=== PATIENT | male | born 1965 | race Caucasian/White ===

== ENCOUNTER 2024-08-03 13:49 | Emergency (ER) | payer MEDICARE ==
[2024-08-03 14:22] VITALS: TEMP 97.7
[2024-08-03 14:45] LABS: Absolute Neutrophil Ct (ANC) 5.52 x10^3/uL (1.78-5.38); BASOPHIL % 0.7 % (0.2-1.2); Basophil (Absolute #) 0.07 x10^3/uL (0.01-0.08); Eosinophil % 2.1 % (0.8-7.0); Hematocrit 28.3 % (40.1-51.0); IMMATURE GRAN # 0.06 x10^3u/L (0.001-0.031); IMMATURE GRAN % 0.6 % (0.001-0.429); Lymphocyte (Absolute #) 2.89 x10^3/uL (1.32-3.57); Lymphocytes % 29.9 % (21.8-53.1); Mean Cell Volume 84.5 fL (79.0-92.2); Mean Corpuscular Hemoglobin 26.9 pg (25.7-32.2); Mean Corpuscular Hgb Concent. 31.8 g/dL (32.3-36.5); Mean Platelet Volume 10.6 fL (9.4-12.4); Monocyte (Absolute #) 0.91 x10^3/uL (0.30-0.82); Monocytes % 9.4 % (5.3-12.2); Neutrophil % 57.3 % (34.0-67.9); Platelet Count 307 x10^3/uL (163-337); Red Blood Count 3.35 x10^6/uL (4.63-6.08); Red Cell Distribution Width 16.4 % (11.6-14.4); White Blood Count 9.7 x10^3/uL (4.23-9.07)
[2024-08-03 14:54] LABS: ACETAMINOPHEN < 10 ug/ml (10-30); ALBUMIN 3.7 g/dL (3.5-5.0); ALKALINE PHOSPHATASE 490 U/L (38-126); ANION GAP 14.4 MEQ/L (5-15); BLOOD UREA NITROGEN 18 mg/dL (9-20); CHLORIDE 103 mmol/L (98-107); Calcium 8.8 mg/dL (8.4-10.2); Carbon Dioxide 23 mmol/L (22-30); EST GLOMERULAR FILTRATION RATE 76.9 ML/MIN; ETHYL ALCOHOL < 10 mg/dL (0-10); Glucose 100 mg/dL (74-106); Potassium 4.1 mmol/L (3.5-5.1); SALICYLATE < 1.0 mg/dL (2-20); SGOT/AST 44 U/L (17-59); SGPT/ALT 27 U/L (0-50); SODIUM 136 mmol/L (135-145); Total Protein 7.8 g/dL (6.3-8.2)
--- NOTE | 2024-08-03 15:26 | ERPHSYRPT ---
- History of Present Illness Time Seen by Provider: 08/03/24 14:20 Source: patient Exam Limitations: no limitations Patient Subjective Stated Complaint: Behavioral problems- suicidal ideation Triage Nursing Assessment: Patient brought back to ED per EMS and transferred to bed per self. Patient A+O X3. Patient's skin pink, warm and dry. Patient is BLE amputee and resides at [facility] "[facility]" for therapy. [facility] staff states patient last night told a nurse that when he was D/C'd from group home he was going to OD on his Oxycontin and end things. Patient denies saying any of that. Patient denies suicidal/homicidal ideation. Physician History: Patient is a 59-year-old male presents to our ED via EMS for suicidal ideation. Patient presents from the [facility]. RN from [facility] reports that patient stated that he would overdose himself on OxyContin and and things once he was discharged from the [facility]. However upon arrival to our ED patient was verbally aggressive argumentative and threatening to staff. patient denied the allegations of self-harm. Patient accused his [facility] facility of lying regarding his suicide intent to get him to leave the facility. Patient currently denies homicidal suicidal ideation. Patient otherwise feels well. No pain no shortness of breath no nausea vomiting or diaphoresis. Patient denies ingesting any form of harmful substances. Patient otherwise feels well. He voices no other complaints or concerns at this time. Patient denies homicidal ideation and suicidal ideation at this time Portions of this note were created with voice recognition technology. There may be grammatical, spelling, punctuation or sound alike errors Timing/Duration: today Severity of Symptoms-Max: moderate Severity of Symptoms-Current: mild Context related to: other Suicidal thoughts: specific plan Associated Symptoms: denies symptoms Previous symptoms: no prior history Allergies/Adverse Reactions: Penicillins Allergy (Verified 08/03/24 13:54) quetiapine [From Seroquel] Allergy (Verified 08/03/24 13:54) Home Medications: Acetaminophen 325 mg [Tylenol 325 mg] 650 mg PO Q6H PRN PRN 08/04/24 [History] Amlodipine Besylate [Norvasc] 10 mg PO DAILY 08/04/24 [History] Aspirin EC 81 mg [Ecotrin 81 mg] 81 mg PO DAILY 08/04/24 [History] Atorvastatin Calcium [Lipitor] 80 mg PO HS 08/04/24 [History] Bisacodyl 10 mg [Dulcolax 10 MG SUPP] 10 mg RC DAILY PRN PRN 08/04/24 [History] Carboxymethylcellulose Sodium [Artificial Tears] 2 drops OP Q2H/PRN PRN 08/04/24 [History] Cholecalciferol (Vitamin D3) [Vitamin D3] 2,000 unit PO DAILY 08/04/24 [History] Clopidogrel Bisulfate [PLAVIX Tablet] 75 mg PO DAILY 08/04/24 [History] Cyanocobalamin (Vitamin B-12) [B-12] 1,000 mcg PO DAILY 08/04/24 [History] Duloxetine HCl [Drizalma Sprinkle] 60 mg PO DAILY 08/04/24 [History] Famotidine 40 mg PO DAILY 08/04/24 [History] Ferrous Sulfate 325 mg [Feosol 325 mg] 325 mg PO DAILY 08/04/24 [History] Finasteride 5 mg [Proscar 5 MG] 5 mg PO DAILY 08/04/24 [History] Fluticasone Propion/Salmeterol [Fluticasone-Salmeterol 250-50] 1 each IH BIDRT 08/04/24 [History] Furosemide 40 mg [Lasix 40 MG] 40 mg PO BID 08/04/24 [History] Hydrocodone/Acetaminophen [Hydrocodone-Acetamin 10-325 mg] 1 each PO Q6-8HPRN PRN 08/04/24 [History] Insulin Glargine [Lantus Insulin] 5 unit SQ DAILY 08/04/24 [History] Isosorbide Mononitrate 30 mg [Imdur 30 MG] 30 mg PO DAILY 08/04/24 [History] Levothyroxine Sodium 50 Mcg [Synthroid 50 Mcg] 50 mcg PO DAILY 08/04/24 [History] Loperamide HCl 2 mg [Imodium 2 mg] 2 mg PO Q8H PRN PRN 08/04/24 [History] Melatonin 10 mg PO HS 08/04/24 [History] Metformin HCl 500 mg [Glucophage 500 MG] 500 mg PO BIDWM 08/04/24 [History] Omeprazole 40 mg PO DAILY 08/04/24 [History] Polyethylene Glycol 3350 17 gm [Miralax Powder 17GM PACKET] 17 gm PO DAILY 08/04/24 [History] Potassium Chloride 20 meq PO DAILY 08/04/24 [History] Pregabalin [Lyrica 150Mg] 150 mg PO BID 08/04/24 [History] Rivaroxaban [Xarelto] 2.5 mg PO BID 08/04/24 [History] Saccharomyces Boulardii [Daily Probiotic] 250 mg PO BID 08/04/24 [History] Simethicone 125 mg PO Q6HPRN PRN 08/04/24 [History] Tamsulosin HCl 0.4 mg [Flomax 0.4 MG] 0.4 mg PO DAILY 08/04/24 [History] Thiamine HCl 100 mg [Vitamin B-1 100 mg] 100 mg PO DAILY 08/04/24 [History] atenoloL [Atenolol] 100 mg PO DAILY 08/04/24 [History] guaiFENesin [Guaifenesin ER] 600 mg PO BID 08/04/24 [History] Hx Influenza Vaccination/Date Given: No Hx Pneumococcal Vaccination/Date Given: No Immunizations Up to Date: Yes Travel Risk - International Travel Have you traveled outside of the country in past 3 weeks: No - Emerging Infectious Disease Are you exhibiting symptoms associated with any current EIDs: No - Past Medical History Pertinent Past Medical History: Yes - Social History Smoking Status: Current every day smoker Exposure to second hand smoke: No Drug Use: none - Social Determinants of Health Will the patient participate in the screening: Yes Do you worry about a steady place to live?: No Do you have any problems with any of the following?: No known problems In the past 12 months,have you had to go without utilities?: No Transportation Issues: No Has anyone in your support network made you feel unsafe?: No Have you or anyone in your house had to go without enough: No Comment: Patient resides at [facility] - Review of Systems Constitutional: No Symptoms, No Fever, No Chills Eyes: No Symptoms Ears, Nose, & Throat: No Symptoms Respiratory: No Symptoms, No Cough, No Dyspnea Cardiac: No Symptoms, No Chest Pain, No Edema, No Syncope Abdominal/Gastrointestinal: No Symptoms, No Abdominal Pain, No Nausea, No Vomiting, No Diarrhea Genitourinary Symptoms: No Symptoms, No Dysuria Musculoskeletal: No Symptoms, No Back Pain, No Neck Pain Skin: No Symptoms, No Rash Neurological: No Symptoms, No Dizziness, No Focal Weakness, No Sensory Changes Psychological: No Symptoms Endocrine: No Symptoms Hematologic/Lymphatic: No Symptoms Immunological/Allergic: No Symptoms All Other Systems: Reviewed and Negative - Nursing Vital Signs Nursing Vital Signs: Initial Vital Signs Temperature 97.7 F 08/03/24 13:56 Pulse Rate 79 08/03/24 13:56 Respiratory Rate 18 08/03/24 13:56 Blood Pressure 130/60 08/03/24 13:56 O2 Sat by Pulse Oximetry 98 08/03/24 13:56 Pain Scale Pain Intensity 0 - Physical Exam General Appearance: no apparent distress Eyes, Ears, Nose, Throat Exam: normal ENT inspection, moist mucous membranes Neck Exam: normal inspection, non-tender, supple Respiratory Exam: normal breath sounds, lungs clear, airway intact, No respiratory distress Cardiovascular Exam: regular rate/rhythm, No edema Gastrointestinal/Abdominal Exam: soft, No tenderness, No distention Extremities Exam: normal inspection, normal range of motion, No evidence of injury, No edema Current Suicidality: denies suicide plan Neurological Exam: alert, 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 No new opacities observed.) Ordered Tests: Active Orders 24 hr Category Date Time Status EKG-ER Only STAT Care 08/03/24 20:16 Active Lemus [Catheter-[place] Lemus] STAT Care 08/03/24 15:00 Active Tele-Health Consult ROUTINE Cons 08/03/24 19:17 Active CHEST 1 VIEW (PORTABLE) Stat Exams 08/03/24 23:59 Completed ACETAMINOPHEN Stat Lab 08/03/24 14:15 Completed CBC W DIFF Stat Lab 08/03/24 14:15 Completed CMP Stat Lab 08/03/24 14:15 Completed ETHYL ALCOHOL Stat Lab 08/03/24 14:15 Completed SALICYLATE Stat Lab 08/03/24 14:15 Completed TROPONIN Q4H Lab 08/03/24 14:15 Completed TROPONIN Q4H Lab 08/03/24 20:28 Completed TROPONIN Q4H Lab 08/04/24 00:11 Completed TROPONIN Stat Lab 08/04/24 05:05 Completed Urine Triage Profile Stat Lab 08/03/24 15:27 Completed Medication Summary Generic Name Dose Route Start Last Admin Trade Name Freq PRN Reason Stop Dose Admin Pregabalin 150 mg 08/03/24 22:00 08/03/24 20:41 Pregabalin 150 Mg Capsule PO 09/02/24 21:59 150 mg BID CASIE Administration Discontinued Medications Generic Name Dose Route Start Last Admin Trade Name Freq PRN Reason Stop Dose Admin Hydrocodone Bitart/Acetaminophen 1 tablet 08/03/24 20:28 08/03/24 20:32 Hydrocodone/Acetamin 10-325 Mg Tablet PO 08/03/24 20:29 1 tablet Q4H PRN STA Administration Hydrocodone Bitart/Acetaminophen Confirm 08/03/24 20:32 Hydrocodone/Acetamin 10-325 Mg Tablet Administered 08/03/24 20:33 Dose 1 tablet .ROUTE .STK-MED ONE Hydrocodone Bitart/Acetaminophen 1 tab 08/03/24 23:58 08/04/24 00:08 Hydrocodone/Apap 5/325 1 Tab Tablet PO 08/03/24 23:59 1 tab STAT ONE Administration Hydrocodone Bitart/Acetaminophen Confirm 08/04/24 00:08 Hydrocodone/Apap 5/325 1 Tab Tablet Administered 08/04/24 00:09 Dose 1 tab .ROUTE .STK-MED ONE Hydrocodone Bitart/Acetaminophen 1 tab 08/04/24 03:27 08/04/24 03:37 Hydrocodone/Apap 5/325 1 Tab Tablet PO 08/04/24 03:28 1 tab STAT ONE Administration Hydrocodone Bitart/Acetaminophen Confirm 08/04/24 03:29 Hydrocodone/Apap 5/325 1 Tab Tablet Administered 08/04/24 03:30 Dose 1 tab .ROUTE .STK-MED ONE Hydrocodone Bitart/Acetaminophen 1 tablet 08/04/24 07:36 08/04/24 07:47 Hydrocodone/Acetamin 10-325 Mg Tablet PO 08/04/24 07:37 1 tablet ONCE STA Administration Hydrocodone Bitart/Acetaminophen Confirm 08/04/24 07:44 Hydrocodone/Acetamin 10-325 Mg Tablet Administered 08/04/24 07:45 Dose 1 tablet .ROUTE .STK-MED ONE Amlodipine Besylate 10 mg 08/04/24 07:22 08/04/24 07:46 Amlodipine Besylate 5 Mg Tablet PO 08/04/24 07:23 10 mg STAT ONE Administration Amlodipine Besylate Confirm 08/04/24 07:44 Amlodipine Besylate 5 Mg Tablet Administered 08/04/24 07:45 Dose 10 mg .ROUTE .STK-MED ONE Aspirin 81 mg 08/04/24 07:29 Aspirin 81 Mg Tablet.Ec PO 08/04/24 07:30 1XONLY ONE Atenolol 100 mg 08/04/24 07:22 08/04/24 07:47 Atenolol 50 Mg Tablet PO 08/04/24 07:23 100 mg STAT ONE Administration Atenolol Confirm 08/04/24 07:44 Atenolol 50 Mg Tablet Administered 08/04/24 07:45 Dose 100 mg .ROUTE .STK-MED ONE Clopidogrel Bisulfate 75 mg 08/04/24 07:27 08/04/24 07:48 Clopidogrel Bisulfate 75 Mg Tablet PO 08/04/24 07:28 75 mg STAT ONE Administration Clopidogrel Bisulfate Confirm 08/04/24 07:43 Clopidogrel Bisulfate 75 Mg Tablet Administered 08/04/24 07:44 Dose 75 mg .ROUTE .STK-MED ONE Furosemide 40 mg 08/04/24 07:25 Furosemide 40 Mg Tablet PO 08/04/24 07:26 STAT ONE Isosorbide Mononitrate 30 mg 08/04/24 07:24 Isosorbide Mononitrate 30 Mg Tab PO 08/04/24 07:25 STAT ONE Metformin HCl 500 mg 08/04/24 07:26 Metformin Hcl 500 Mg Tablet PO 08/04/24 07:27 STAT ONE Potassium Chloride 40 meq 08/04/24 07:28 08/04/24 07:48 Potassium Chloride Tab 10 Meq Tab PO 08/04/24 07:29 40 meq STAT ONE Administration Potassium Chloride Confirm 08/04/24 07:44 Potassium Chloride Tab 10 Meq Tab Administered 08/04/24 07:45 Dose 40 meq .ROUTE .STK-MED ONE Pregabalin 150 mg 08/04/24 07:29 Pregabalin 50 Mg Capsule PO 08/04/24 07:30 STAT ONE Rivaroxaban 2.5 mg 08/04/24 07:31 Rivaroxaban 10 Mg Tablet PO 08/04/24 07:32 STAT ONE Lab/Rad Data: Laboratory Result Diagrams 08/03/24 14:15 08/03/24 14:15 Laboratory Results 08/04/24 08/04/24 08/03/24 Range/Units 05:05 00:11 20:28 WBC (4.23-9.07) x10^3/uL RBC (4.63-6.08) x10^6/uL Hgb (13.7-17.5) g/dL Hct (40.1-51.0) % MCV (79.0-92.2) fL MCH (25.7-32.2) pg MCHC (32.3-36.5) g/dL RDW (11.6-14.4) % Plt Count (163-337) x10^3/uL MPV (9.4-12.4) fL Gran % (34.0-67.9) % Immature Gran % (Auto) (0.001-0.429) % Nucleat RBC Rel Count (0.00-0.2) % Eos # (Auto) (0.04-0.54) x10^3/uL Immature Gran # (Auto) (0.001-0.031) x10^3u/L Absolute Lymphs (auto) (1.32-3.57) x10^3/uL Absolute Monos (auto) (0.30-0.82) x10^3/uL Absolute Nucleated RBC (0.00-0.012) x10^3u/L Lymphocytes % (21.8-53.1) % Monocytes % (5.3-12.2) % Eosinophils % (0.8-7.0) % Basophils % (0.2-1.2) % Absolute Granulocytes (1.78-5.38) x10^3/uL Basophils # (0.01-0.08) x10^3/uL Sodium (135-145) mmol/L Potassium (3.5-5.1) mmol/L Chloride (98-107) mmol/L Carbon Dioxide (22-30) mmol/L Anion Gap (5-15) MEQ/L BUN (9-20) mg/dL Creatinine (0.66-1.25) mg/dL Estimated GFR ML/MIN Glucose (74-106) mg/dL Calcium (8.4-10.2) mg/dL Total Bilirubin (0.2-1.3) mg/dL AST (17-59) U/L ALT (0-50) U/L Alkaline Phosphatase (38-126) U/L Troponin I 0.014 0.017 0.019 (0.000-0.033) ng/mL Serum Total Protein (6.3-8.2) g/dL Albumin (3.5-5.0) g/dL Salicylates (2-20) mg/dL Urine Opiates Level (NEGATIVE) Ur Methadone (NEGATIVE) Acetaminophen (10-30) ug/ml Urine Barbiturates (NEGATIVE) Ur Phencyclidine (PCP) (NEGATIVE) Urine Amphetamine (NEGATIVE) U Benzodiazepine Level (NEGATIVE) Urine Cocaine (NEGATIVE) Urine Marijuana (THC) (NEGATIVE) Ethyl Alcohol (0-10) mg/dL 08/03/24 08/03/24 08/03/24 Range/Units 15:27 14:15 14:15 WBC (4.23-9.07) x10^3/uL RBC (4.63-6.08) x10^6/uL Hgb (13.7-17.5) g/dL Hct (40.1-51.0) % MCV (79.0-92.2) fL MCH (25.7-32.2) pg MCHC (32.3-36.5) g/dL RDW (11.6-14.4) % Plt Count (163-337) x10^3/uL MPV (9.4-12.4) fL Gran % (34.0-67.9) % Immature Gran % (Auto) (0.001-0.429) % Nucleat RBC Rel Count (0.00-0.2) % Eos # (Auto) (0.04-0.54) x10^3/uL Immature Gran # (Auto) (0.001-0.031) x10^3u/L Absolute Lymphs (auto) (1.32-3.57) x10^3/uL Absolute Monos (auto) (0.30-0.82) x10^3/uL Absolute Nucleated RBC (0.00-0.012) x10^3u/L Lymphocytes % (21.8-53.1) % Monocytes % (5.3-12.2) % Eosinophils % (0.8-7.0) % Basophils % (0.2-1.2) % Absolute Granulocytes (1.78-5.38) x10^3/uL Basophils # (0.01-0.08) x10^3/uL Sodium 136 (135-145) mmol/L Potassium 4.1 (3.5-5.1) mmol/L Chloride 103 (98-107) mmol/L Carbon Dioxide 23 (22-30) mmol/L Anion Gap 14.4 (5-15) MEQ/L BUN 18 (9-20) mg/dL Creatinine 1.10 (0.66-1.25) mg/dL Estimated GFR 76.9 ML/MIN Glucose 100 (74-106) mg/dL Calcium 8.8 (8.4-10.2) mg/dL Total Bilirubin 0.40 (0.2-1.3) mg/dL AST 44 (17-59) U/L ALT 27 (0-50) U/L Alkaline Phosphatase 490 H (38-126) U/L Troponin I 0.027 (0.000-0.033) ng/mL Serum Total Protein 7.8 (6.3-8.2) g/dL Albumin 3.7 (3.5-5.0) g/dL Salicylates < 1.0 L (2-20) mg/dL Urine Opiates Level POSITIVE A (NEGATIVE) Ur Methadone NEGATIVE (NEGATIVE) Acetaminophen < 10 L (10-30) ug/ml Urine Barbiturates NEGATIVE (NEGATIVE) Ur Phencyclidine (PCP) NEGATIVE (NEGATIVE) Urine Amphetamine NEGATIVE (NEGATIVE) U Benzodiazepine Level NEGATIVE (NEGATIVE) Urine Cocaine NEGATIVE (NEGATIVE) Urine Marijuana (THC) NEGATIVE (NEGATIVE) Ethyl Alcohol < 10 (0-10) mg/dL 08/03/24 Range/Units 14:15 WBC 9.7 H (4.23-9.07) x10^3/uL RBC 3.35 L (4.63-6.08) x10^6/uL Hgb 9.0 L (13.7-17.5) g/dL Hct 28.3 L (40.1-51.0) % MCV 84.5 (79.0-92.2) fL MCH 26.9 (25.7-32.2) pg MCHC 31.8 L (32.3-36.5) g/dL RDW 16.4 H (11.6-14.4) % Plt Count 307 (163-337) x10^3/uL MPV 10.6 (9.4-12.4) fL Gran % 57.3 (34.0-67.9) % Immature Gran % (Auto) 0.6 H (0.001-0.429) % Nucleat RBC Rel Count 0.0 (0.00-0.2) % Eos # (Auto) 0.20 (0.04-0.54) x10^3/uL Immature Gran # (Auto) 0.06 H (0.001-0.031) x10^3u/L Absolute Lymphs (auto) 2.89 (1.32-3.57) x10^3/uL Absolute Monos (auto) 0.91 H (0.30-0.82) x10^3/uL Absolute Nucleated RBC 0.00 (0.00-0.012) x10^3u/L Lymphocytes % 29.9 (21.8-53.1) % Monocytes % 9.4 (5.3-12.2) % Eosinophils % 2.1 (0.8-7.0) % Basophils % 0.7 (0.2-1.2) % Absolute Granulocytes 5.52 H (1.78-5.38) x10^3/uL Basophils # 0.07 (0.01-0.08) x10^3/uL Sodium (135-145) mmol/L Potassium (3.5-5.1) mmol/L Chloride (98-107) mmol/L Carbon Dioxide (22-30) mmol/L Anion Gap (5-15) MEQ/L BUN (9-20) mg/dL Creatinine (0.66-1.25) mg/dL Estimated GFR ML/MIN Glucose (74-106) mg/dL Calcium (8.4-10.2) mg/dL Total Bilirubin (0.2-1.3) mg/dL AST (17-59) U/L ALT (0-50) U/L Alkaline Phosphatase (38-126) U/L Troponin I (0.000-0.033) ng/mL Serum Total Protein (6.3-8.2) g/dL Albumin (3.5-5.0) g/dL Salicylates (2-20) mg/dL Urine Opiates Level (NEGATIVE) Ur Methadone (NEGATIVE) Acetaminophen (10-30) ug/ml Urine Barbiturates (NEGATIVE) Ur Phencyclidine (PCP) (NEGATIVE) Urine Amphetamine (NEGATIVE) U Benzodiazepine Level (NEGATIVE) Urine Cocaine (NEGATIVE) Urine Marijuana (THC) (NEGATIVE) Ethyl Alcohol (0-10) mg/dL - Progress Progress: improved Progress Note: Of note computer glitch caused loss of medical decision making note. I will attempt to summarize the visit. 59-year-old male presents to our ED from [facility]. Upon arrival patient was verbally aggressive with staff. Patient eventually appeared to calm down. Laboratory workup completed. Patient advised that he has a significant cardiovascular history. Patient advised that he has had pneumonia for 3 months. Patient requested additional workup. Troponin obtained. Troponin negative. However we trended troponin level and it appeared to decrease steadily within the normal range. EKG revealed sinus rhythm. Patient requested chest x-ray. Chest x-ray completed and compared to a chest x- ray we obtained from [facility]. There appears to be interval improvement of opacity. Patient concerned with fluid around his lungs. No fluid around the lungs observed on today's chest x-ray. Patient verbally aggressive with incoming nursing staff. Patient demanded soda pop. Nursing staff advised water status patient is diabetic. Patient became verbally aggressive and told nurse Denny that he was fired. Patient also stating that he wants to press charges on the nursing staff from [facility] for lying about his gesture to overdose. We are currently working on placement. Currently the change of shift. Patient endorsed to incoming physician Dr. Castorena who will resume care and oversee transfer. Portions of this note were created with voice recognition technology. There may be grammatical, spelling, punctuation or sound alike errors Complexity of problem addressed is moderate acute complicated. No critical care time. Complex of data reviewed analyzes moderate. Test ordered chest reviewed results analyzed and correlated clinically with history and physical exam. Risk of complication and or risk of morbidity/mortality of patient management is high. Patient requires transfer to higher level of care. Vital stable. Time spent to transfer patient is approximately 20 minutes. Plan of care established for shared decision making. No social determinants of health present to impede follow-up. Portions of this note were created with voice recognition technology. There may be grammatical, spelling, punctuation or sound alike errors 08/04/24 08:06 Counseled pt/family regarding: diagnosis - Departure Departure Disposition: Transfer Clinical Impression: Suicide gesture Condition: Stable Critical Care Time: No Referrals: JENNIFER ALFONSO OF [Primary Care Provider] - Follow up/PCP as directed
[2024-08-03 16:09] LABS: Amphetamine,Urine NEGATIVE (NEGATIVE); Barbiturate,Urine NEGATIVE (NEGATIVE); Benzodiazepine,Urine NEGATIVE (NEGATIVE); Cocaine,Urine NEGATIVE (NEGATIVE); Methadone,Urine NEGATIVE (NEGATIVE); Opiate,Urine POSITIVE (NEGATIVE); PCP,Urine NEGATIVE (NEGATIVE); THC,Urine NEGATIVE (NEGATIVE)
[2024-08-03] MEDS: NORCO 10-325 MG PO STA (20:32)
[2024-08-03] MEDS ORDERED: NORCO 10-325 MG ONE (20:32)
[2024-08-03] MEDS: LYRICA 150MG PO SCH (20:41)
[2024-08-04] MEDS ORDERED: NORCO 5/325 MG ONE ×2 (00:08→03:29)
[2024-08-04] MEDS: NORCO 5/325 MG PO ONE ×2 (00:08→03:37)
--- NOTE | 2024-08-04 01:35 | XRAY ---
CLINICAL HISTORY: pain COMPARISON: No previous images are available for comparison. TECHNIQUE: Chest x-ray was done in frontal view. FINDINGS: Lung parenchyma and pleura: Airspace opacity involves the right mid zone and the upper part of the right lower zone. Suspicion of peripheral opacity was noted in the right upper zone. A rounded opacity was noted in the right lower zone, at the cardiophrenic angle. Blunting of the right costophrenic angle. Clear left lung field with no definite consolidation or opacities. Clear left costophrenic angle. Heart: Normal heart size. Prominent hilar shadows. Bone: Degenerative changes of the thoracic region. Soft tissue: No significant soft tissue abnormalities. IMPRESSION: 1. Airspace opacity in the right mid and lower zones and suspected opacity in the right upper zone raise the possibility of pneumonic infiltration. Clinical correlation is advised. 2. Blunting of the right costophrenic angle, indicating mild pleural effusion/thickening. Clinical correlation is advised. Electronically Signed by: Damian Roque MD. (08/04/2024 01:31:50 EST)
[2024-08-04] MEDS ORDERED: Lyrica 50MG PO ONE (07:29)
[2024-08-04] MEDS ORDERED: PLAVIX Tablet ONE (07:43)
[2024-08-04] MEDS ORDERED: TENORMIN 50 MG ONE (07:44)
[2024-08-04] MEDS ORDERED: NORCO 10-325 MG ONE (07:44)
[2024-08-04] MEDS ORDERED: Klor Con ONE (07:44)
[2024-08-04] MEDS ORDERED: NORVASC 5 MG ONE (07:44)
[2024-08-04] MEDS: NORVASC 5 MG PO ONE (07:46)
[2024-08-04] MEDS: TENORMIN 50 MG PO ONE (07:47)
[2024-08-04] MEDS: NORCO 10-325 MG PO STA (07:47)
[2024-08-04] MEDS: Klor Con PO ONE (07:48)
[2024-08-04] MEDS: PLAVIX Tablet PO ONE (07:48)
[2024-08-04] MEDS: Imdur 30 MG PO ONE (09:06)
[2024-08-04] MEDS: Lasix 40 MG PO ONE (09:06)
[2024-08-04] MEDS: XARELTO 10 MG TABLET PO ONE (09:06)
[2024-08-04] MEDS: ECOTRIN 81 MG PO ONE (09:06)
[2024-08-04] MEDS: Glucophage 500 MG PO ONE (09:06)
[2024-08-04] MEDS: LYRICA 150MG PO ONE (09:07)
[2024-08-04 10:12] VITALS: O2SAT 97
[2024-08-04 11:46] VITALS: BP 174/65; PULSE 68; RESP 18
== END 2024-08-04 12:00 | disposition short-term general hospital (02) ==
LOC: ED 13:49
DX: R45.851 Suicidal ideations (principal); Z79.899 Other long term (current) drug therapy; Z79.01 Long term (current) use of anticoagulants
CPT/HCPCS: 36415; 51702; 71045; 80053; 80143; 80179; 80307; 82077; 84484; 85025; 93005; 99285; Q3014; A9270-GY

== ENCOUNTER 2024-12-31 14:01 | Emergency (ER) | payer MEDICARE ==
[2024-12-31 15:11] VITALS: TEMP 98.2
--- NOTE | 2024-12-31 15:37 | XRAY ---
Indication: Chest pain. Comparison: August 03, 2024 Portable chest demonstrates clearing right lung airspace disease with now minimal atelectasis/scarring. Remaining heart and left lung unremarkable. Bony thorax intact with minimal degenerative changes. No acute findings.
--- NOTE | 2024-12-31 15:39 | XRAY ---
Indication: Headache injury. Status post fall one day ago. Multiple contiguous axial images obtained through the head without contrast. Comparison: None Age-appropriate global atrophy, minimal periventricular degenerative micro-ischemia bilaterally, 1 cm focus remote infarct right mid periventricular white matter, and remote lacunar infarct right basal ganglia. No acute intracranial hemorrhage, abnormal extra-axial fluid collection, or mass effect. Fourth ventricle is midline without hydrocephalus. Bony calvarium intact. There is moderate mucosal thickening right maxillary sinus. Mastoid air cells are clear. 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 Incidental paranasal sinus disease.
[2024-12-31 15:55] LABS: Absolute Neutrophil Ct (ANC) 4.22 x10^3/uL (1.78-5.38); BASOPHIL % 0.7 % (0.2-1.2); Basophil (Absolute #) 0.05 x10^3/uL (0.01-0.08); Eosinophil % 1.9 % (0.8-7.0); Eosinophil (Absolute #) 0.14 x10^3/uL (0.04-0.54); Hematocrit 36.8 % (40.1-51.0); Hemoglobin 12.3 g/dL (13.7-17.5); IMMATURE GRAN # 0.02 x10^3u/L (0.001-0.031); IMMATURE GRAN % 0.3 % (0.001-0.429); Lymphocyte (Absolute #) 2.02 x10^3/uL (1.32-3.57); Lymphocytes % 27.7 % (21.8-53.1); Mean Cell Volume 80.9 fL (79.0-92.2); Mean Corpuscular Hgb Concent. 33.4 g/dL (32.3-36.5); Mean Platelet Volume 9.1 fL (9.4-12.4); Monocyte (Absolute #) 0.83 x10^3/uL (0.30-0.82); Monocytes % 11.4 % (5.3-12.2); Platelet Count 282 x10^3/uL (163-337); Red Blood Count 4.55 x10^6/uL (4.63-6.08); Red Cell Distribution Width 16.3 % (11.6-14.4); White Blood Count 7.3 x10^3/uL (4.23-9.07)
[2024-12-31] MEDS ORDERED: Zofran 4 MG/2 ML VIAL ONE ×2 (16:14→16:16)
[2024-12-31] MEDS ORDERED: Sodium Chloride 0.9% 1000 ML 1,000 ML ONE ×2 (16:14→17:57)
[2024-12-31] MEDS: Sodium Chloride 0.9% 1000 ML 1,000 ML IV STA ×2 (16:15→18:03)
[2024-12-31] MEDS: Zofran 4 MG/2 ML VIAL IV ONE (16:15)
[2024-12-31 16:37] LABS: ACETAMINOPHEN < 10 ug/ml (10-30); ALBUMIN 3.7 g/dL (3.5-5.0); ALKALINE PHOSPHATASE 299 U/L (38-126); ANION GAP 17.1 MEQ/L (5-15); BLOOD UREA NITROGEN 7 mg/dL (9-20); CHLORIDE 105 mmol/L (98-107); Calcium 8.8 mg/dL (8.4-10.2); Creatinine 1 1.28 mg/dL (0.66-1.25); EST GLOMERULAR FILTRATION RATE 64.1 ML/MIN; ETHYL ALCOHOL 104 mg/dL (0-10); Glucose 115 mg/dL (74-106); LIPASE 95 U/L (23-300); SALICYLATE < 1.0 mg/dL (2-20); SGOT/AST 40 U/L (17-59); SGPT/ALT 20 U/L (0-50); SODIUM 135 mmol/L (135-145); Total Protein 7.2 g/dL (6.3-8.2)
[2024-12-31 16:41] LABS: Potassium 3.1 mmol/L (3.5-5.1)
[2024-12-31 16:50] LABS: Carbon Dioxide 16 mmol/L (22-30)
--- NOTE | 2024-12-31 17:15 | ERPHSYRPT ---
- History of Present Illness Source: patient Exam Limitations: no limitations Patient Subjective Stated Complaint: PT. STATES, "I BEEN DRINKING HEAVY FOR ABOUT A WEEK, MY LAST DRINK WAS 2 HOURS AGO, I'VE BEEN DRINKING ANYTHING I CAN GET AHOLD OF. I HAVE THIS RASH ON MY BUTT AND IT HERNANDEZ. I FELL OUT OF MY MOTORIZED W/C AND HIT MY HEAD YESTERDAY." Triage Nursing Assessment: PT. ARRIVES VIA W/C ALONE, HE IS A&OX3, STRONG SMELL OF ETOH, SPEECH CLEAR, RESP. EVEN UNLABORED, SKIN PW/D, INCONTINENT OF BOWEL AND BLADDER. RED RAISED PAPULAR RASH ON RT. BUTTOCK . Hx Tetanus, Diphtheria Vaccination/Date Given: No Hx Influenza Vaccination/Date Given: No Hx Pneumococcal Vaccination/Date Given: No Immunizations Up to Date: No <JOSÉ MIGUEL MERRILL - Last Filed: 12/31/24 19:51> <KORY SPEARS - Last Filed: 12/31/24 22:19> - History of Present Illness Time Seen by Provider: 12/31/24 14:59 Physician History: Patient is here for alcohol intoxication. Patient states he has been drinking heavily for approximately a week. Last drink was 2 hours ago. States he has been drinking combination of alcohol. Patient also has a rash on his left buttocks. Fell out of his motorized wheelchair yesterday and hit his head. No other injuries. Patient is not suicidal homicidal. States that he would like help with his drinking. Although nursing triage note states that he is incontinent. Really on my exam, patient states that he just soiled his pants and peed them secondary to intoxication. As I examine him he is able to hold his urine and is passing gas normally. Of note patient has bilateral [id number] amputations of both legs. (JOSÉ MIGUEL MERRILL) Allergies/Adverse Reactions: Penicillins Allergy (Verified 08/03/24 13:54) quetiapine [From Seroquel] Allergy (Verified 08/03/24 13:54) Home Medications: Acetaminophen 325 mg [Tylenol 325 mg] 650 mg PO Q6H PRN PRN 08/04/24 [History] Amlodipine Besylate [Norvasc] 10 mg PO DAILY 08/04/24 [History] Aspirin EC 81 mg [Ecotrin 81 mg] 81 mg PO DAILY 08/04/24 [History] Atorvastatin Calcium [Lipitor] 80 mg PO HS 08/04/24 [History] Bisacodyl 10 mg [Dulcolax 10 MG SUPP] 10 mg RC DAILY PRN PRN 08/04/24 [History] Carboxymethylcellulose Sodium [Artificial Tears] 2 drops OP Q2H/PRN PRN 08/04/24 [History] Cholecalciferol (Vitamin D3) [Vitamin D3] 2,000 unit PO DAILY 08/04/24 [History] Clopidogrel Bisulfate [PLAVIX Tablet] 75 mg PO DAILY 08/04/24 [History] Cyanocobalamin (Vitamin B-12) [B-12] 1,000 mcg PO DAILY 08/04/24 [History] Duloxetine HCl [Drizalma Sprinkle] 60 mg PO DAILY 08/04/24 [History] Famotidine 40 mg PO DAILY 08/04/24 [History] Ferrous Sulfate 325 mg [Feosol 325 mg] 325 mg PO DAILY 08/04/24 [History] Finasteride 5 mg [Proscar 5 MG] 5 mg PO DAILY 08/04/24 [History] Fluticasone Propion/Salmeterol [Fluticasone-Salmeterol 250-50] 1 each IH BIDRT 08/04/24 [History] Furosemide 40 mg [Lasix 40 MG] 40 mg PO BID 08/04/24 [History] Hydrocodone/Acetaminophen [Hydrocodone-Acetamin 10-325 mg] 1 each PO Q6-8HPRN PRN 08/04/24 [History] Insulin Glargine [Lantus Insulin] 5 unit SQ DAILY 08/04/24 [History] Isosorbide Mononitrate 30 mg [Imdur 30 MG] 30 mg PO DAILY 08/04/24 [History] Levothyroxine Sodium 50 Mcg [Synthroid 50 Mcg] 50 mcg PO DAILY 08/04/24 [History] Loperamide HCl 2 mg [Imodium 2 mg] 2 mg PO Q8H PRN PRN 08/04/24 [History] Melatonin 10 mg PO HS 08/04/24 [History] Metformin HCl 500 mg [Glucophage 500 MG] 500 mg PO BIDWM 08/04/24 [History] Omeprazole 40 mg PO DAILY 08/04/24 [History] Polyethylene Glycol 3350 17 gm [Miralax Powder 17GM PACKET] 17 gm PO DAILY 08/04/24 [History] Potassium Chloride 20 meq PO DAILY 08/04/24 [History] Pregabalin [Lyrica 150Mg] 150 mg PO BID 08/04/24 [History] Rivaroxaban [Xarelto] 2.5 mg PO BID 08/04/24 [History] Saccharomyces Boulardii [Daily Probiotic] 250 mg PO BID 08/04/24 [History] Simethicone 125 mg PO Q6HPRN PRN 08/04/24 [History] Tamsulosin HCl 0.4 mg [Flomax 0.4 MG] 0.4 mg PO DAILY 08/04/24 [History] Thiamine HCl 100 mg [Vitamin B-1 100 mg] 100 mg PO DAILY 08/04/24 [History] atenoloL [Atenolol] 100 mg PO DAILY 08/04/24 [History] guaiFENesin [Guaifenesin ER] 600 mg PO BID 08/04/24 [History] Travel Risk - International Travel Have you traveled outside of the country in past 3 weeks: No - Emerging Infectious Disease Are you exhibiting symptoms associated with any current EIDs: No <JOSÉ MIGUEL MERRILL - Last Filed: 12/31/24 19:51> - Past Medical History Pertinent Past Medical History: Yes - Social History Smoking Status: Current every day smoker Exposure to second hand smoke: No Drug Use: none - Social Determinants of Health Will the patient participate in the screening: Yes Do you worry about a steady place to live?: No Do you have any problems with any of the following?: Other In the past 12 months,have you had to go without utilities?: No Transportation Issues: Yes Has anyone in your support network made you feel unsafe?: No Have you or anyone in your house had to go w/o enough food: No Comment: NEEDS HOME HEALTH <JOSÉ MIGUEL MERRILL - Last Filed: 12/31/24 19:51> - Physical Exam SpO2 Interpretation: normal SpO2: 94 <JOSÉ MIGUEL MERRILL - Last Filed: 12/31/24 19:51> - Nursing Vital Signs Nursing Vital Signs: Initial Vital Signs Temperature 98.2 F 12/31/24 14:03 Pulse Rate 99 H 12/31/24 14:03 Respiratory Rate 18 12/31/24 14:03 Blood Pressure 139/69 12/31/24 14:03 O2 Sat by Pulse Oximetry 96 12/31/24 14:03 Pain Scale Pain Intensity 0 - Physical Exam Comments: 12/31/24 17:13 Review of Systems Constitutional: Negative for fever. HENT: Negative for congestion. Respiratory: Negative for shortness of breath. Cardiovascular: Negative for chest pain. Gastrointestinal: Negative for abdominal pain. Genitourinary: Negative for dysuria. Musculoskeletal: Negative for back pain. Skin: Negative for rash. Neurological: Negative for headaches. Psychiatric/Behavioral: Negative for behavioral problems. All other systems reviewed and are negative. Physical Exam Vitals signs and nursing note reviewed. Constitutional: Appearance: Patient is well-developed. HENT: Head: Normocephalic and atraumatic. Eyes: Conjunctiva/sclera: Conjunctivae normal. Neck: Musculoskeletal: Normal range of motion. Trachea: No tracheal deviation. Cardiovascular: Rate and Rhythm: Normal rate. Heart sounds normal. Pulmonary: Effort: Pulmonary effort is normal. No respiratory distress. Abdominal: Palpations: Abdomen is soft. Musculoskeletal: General: No deformity. Bilateral ssjif-[id number] amputations Skin: General: Skin is warm and dry. Neurological/ Psychiatric: Mental Status: Mental status, behavior, interaction with environment is appropriate for patient's age and condition (JOSÉ MIGUEL MERRILL) - Course Nursing assessment & vital signs reviewed: Yes EKG Interpreted by Me: Sinus Rhythm (EKG demonstrates sinus rhythm, right bundle branch block, rate of 96, RI 183, QRS 133, QTc 515, no STEMI or other ST changes) <JOSÉ MIGUEL MERRILL - Last Filed: 12/31/24 19:51> Ordered Tests: Active Orders 24 hr Category Date Time Status EKG-ER Only STAT Care 12/31/24 15:10 Active IV Insertion STAT Care 12/31/24 15:10 Active Telemetry q4h Care 12/31/24 17:10 Active ACO SDOH Referral ONCE Cons 12/31/24 15:11 Active CHEST 1 VIEW (PORTABLE) Stat Exams 12/31/24 15:10 Completed HEAD WITHOUT CONTRAST [CT] Stat Exams 12/31/24 15:11 Completed ACETAMINOPHEN Stat Lab 12/31/24 15:40 Completed CBC W DIFF Stat Lab 12/31/24 15:40 Completed CMP Stat Lab 12/31/24 15:40 Completed CULTURE,URINE Stat Lab 12/31/24 17:43 Received ETHYL ALCOHOL Stat Lab 12/31/24 15:40 Completed LIPASE Stat Lab 12/31/24 15:40 Completed MAGNESIUM Stat Lab 12/31/24 17:15 Completed SALICYLATE Stat Lab 12/31/24 15:40 Completed TROPONIN Q4H Lab 12/31/24 15:40 Completed UA W/RFX UR CULTURE Stat Lab 12/31/24 17:43 Completed Urine Triage Profile Stat Lab 12/31/24 17:43 Completed Medication Summary Discontinued Medications Generic Name Dose Route Start Last Admin Trade Name Freq PRN Reason Stop Dose Admin Sodium Chloride 1,000 mls @ 999 mls/hr 12/31/24 15:10 12/31/24 18:39 Sodium Chloride 0.9% 1000 Ml IV 12/31/24 16:10 Infused .Q1H1M STA Infusion Sodium Chloride Confirm 12/31/24 16:14 Sodium Chloride 0.9% 1000 Ml Administered 12/31/24 16:15 Dose 1,000 mls @ ud .ROUTE .STK-MED ONE Potassium Chloride 20 meq in 100 mls @ 50 mls/hr 12/31/24 17:10 12/31/24 20:06 Potassium Chloride 20 Meq In Water 100ml IV 12/31/24 19:09 Infused STAT ONE Infusion Sodium Chloride 1,000 mls @ 999 mls/hr 12/31/24 17:10 12/31/24 19:10 Sodium Chloride 0.9% 1000 Ml IV 12/31/24 18:10 Infused .Q1H1M STA Infusion Sodium Chloride Confirm 12/31/24 17:57 Sodium Chloride 0.9% 1000 Ml Administered 12/31/24 17:58 Dose 1,000 mls @ ud .ROUTE .STK-MED ONE Potassium Chloride Confirm 12/31/24 17:57 Potassium Chloride 20 Meq In Water 100ml Administered 12/31/24 17:58 Dose 100 mls @ ud IV .STK-MED ONE Ceftriaxone Sodium 2 gm in 100 mls @ 200 mls/hr 12/31/24 18:42 12/31/24 20:12 Rocephin 2 Gm/100 Ml Nacl IV 12/31/24 19:11 Infused STAT ONE Infusion Ceftriaxone Sodium Confirm 12/31/24 19:36 Rocephin 2 Gm/100 Ml Nacl Administered 12/31/24 19:37 Dose 2 gm in 100 mls @ ud IV .STK-MED ONE Ondansetron HCl 8 mg 12/31/24 15:10 12/31/24 16:15 Ondansetron Hcl 4 Mg/2 Ml Vial IV 12/31/24 15:11 8 mg STAT ONE Administration Ondansetron HCl Confirm 12/31/24 16:14 Ondansetron Hcl 4 Mg/2 Ml Vial Administered 12/31/24 16:15 Dose 4 mg .ROUTE .STK-MED ONE Ondansetron HCl Confirm 12/31/24 16:16 Ondansetron Hcl 4 Mg/2 Ml Vial Administered 12/31/24 16:17 Dose 4 mg .ROUTE .STK-MED ONE Pantoprazole Sodium 40 mg 12/31/24 17:10 12/31/24 17:58 Pantoprazole 40 Mg Vial IV 12/31/24 17:11 40 mg STAT ONE Administration Pantoprazole Sodium Confirm 12/31/24 17:56 Pantoprazole 40 Mg Vial Administered 12/31/24 17:57 Dose 40 mg IV .STK-MED ONE Lab/Rad Data: Laboratory Result Diagrams 12/31/24 15:40 12/31/24 15:40 Laboratory Results 12/31/24 12/31/24 12/31/24 Range/Units 17:43 17:43 17:15 WBC (4.23-9.07) x10^3/uL RBC (4.63-6.08) x10^6/uL Hgb (13.7-17.5) g/dL Hct (40.1-51.0) % MCV (79.0-92.2) fL MCH (25.7-32.2) pg MCHC (32.3-36.5) g/dL RDW (11.6-14.4) % Plt Count (163-337) x10^3/uL MPV (9.4-12.4) fL Gran % (34.0-67.9) % Immature Gran % (Auto) (0.001-0.429) % Nucleat RBC Rel Count (0.00-0.2) % Eos # (Auto) (0.04-0.54) x10^3/uL Immature Gran # (Auto) (0.001-0.031) x10^3u/L Absolute Lymphs (auto) (1.32-3.57) x10^3/uL Absolute Monos (auto) (0.30-0.82) x10^3/uL Absolute Nucleated RBC (0.00-0.012) x10^3u/L Lymphocytes % (21.8-53.1) % Monocytes % (5.3-12.2) % Eosinophils % (0.8-7.0) % Basophils % (0.2-1.2) % Absolute Granulocytes (1.78-5.38) x10^3/uL Basophils # (0.01-0.08) x10^3/uL Sodium (135-145) mmol/L Potassium (3.5-5.1) mmol/L Chloride (98-107) mmol/L Carbon Dioxide (22-30) mmol/L Anion Gap (5-15) MEQ/L BUN (9-20) mg/dL Creatinine (0.66-1.25) mg/dL Estimated GFR ML/MIN Glucose (74-106) mg/dL Calcium (8.4-10.2) mg/dL Magnesium 2.0 (1.6-2.3) mg/dL Total Bilirubin (0.2-1.3) mg/dL AST (17-59) U/L ALT (0-50) U/L Alkaline Phosphatase (38-126) U/L Troponin I (0.000-0.033) ng/mL Serum Total Protein (6.3-8.2) g/dL Albumin (3.5-5.0) g/dL Lipase (23-300) U/L Urine Color Yellow (Yellow) Urine Appearance Cloudy A (Clear) Urine pH 5.5 (4.6-8.0) Ur Specific [place] 1.010 (1.005-1.030) Urine Protein 300 A (Negative) Urine Glucose (UA) Negative (Negative) mg/dL Urine Ketones Negative (Negative) Urine Blood Small A (Negative) Urine Nitrite Negative (Negative) Urine Bilirubin Negative (Negative) Urine Urobilinogen 0.2 (0.2) mg/dL Ur Leukocyte Esterase Large A (Negative) U Hyaline Cast (Auto) 3-5 A (0-2) /LPF Urine Microscopic RBC 6-10 A (0-5) /HPF Urine Microscopic WBC >100 A (0-5) /HPF Ur Epithelial Cells None Seen (None Seen) /HPF Urine Bacteria Rare A (None Seen) /HPF Urine Culture Reflexed YES (NO) Salicylates (2-20) mg/dL Urine Opiates Level POSITIVE A (NEGATIVE) Ur Methadone NEGATIVE (NEGATIVE) Acetaminophen (10-30) ug/ml Urine Barbiturates NEGATIVE (NEGATIVE) Ur Phencyclidine (PCP) NEGATIVE (NEGATIVE) Urine Amphetamine NEGATIVE (NEGATIVE) U Benzodiazepine Level POSITIVE A (NEGATIVE) Urine Cocaine NEGATIVE (NEGATIVE) Urine Marijuana (THC) NEGATIVE (NEGATIVE) Ethyl Alcohol (0-10) mg/dL 12/31/24 12/31/24 12/31/24 Range/Units 15:40 15:40 15:40 WBC 7.3 (4.23-9.07) x10^3/uL RBC 4.55 L (4.63-6.08) x10^6/uL Hgb 12.3 L (13.7-17.5) g/dL Hct 36.8 L (40.1-51.0) % MCV 80.9 (79.0-92.2) fL MCH 27.0 (25.7-32.2) pg MCHC 33.4 (32.3-36.5) g/dL RDW 16.3 H (11.6-14.4) % Plt Count 282 (163-337) x10^3/uL MPV 9.1 L (9.4-12.4) fL Gran % 58.0 (34.0-67.9) % Immature Gran % (Auto) 0.3 (0.001-0.429) % Nucleat RBC Rel Count 0.0 (0.00-0.2) % Eos # (Auto) 0.14 (0.04-0.54) x10^3/uL Immature Gran # (Auto) 0.02 (0.001-0.031) x10^3u/L Absolute Lymphs (auto) 2.02 (1.32-3.57) x10^3/uL Absolute Monos (auto) 0.83 H (0.30-0.82) x10^3/uL Absolute Nucleated RBC 0.00 (0.00-0.012) x10^3u/L Lymphocytes % 27.7 (21.8-53.1) % Monocytes % 11.4 (5.3-12.2) % Eosinophils % 1.9 (0.8-7.0) % Basophils % 0.7 (0.2-1.2) % Absolute Granulocytes 4.22 (1.78-5.38) x10^3/uL Basophils # 0.05 (0.01-0.08) x10^3/uL Sodium 135 (135-145) mmol/L Potassium 3.1 L (3.5-5.1) mmol/L Chloride 105 (98-107) mmol/L Carbon Dioxide 16 L* (22-30) mmol/L Anion Gap 17.1 H (5-15) MEQ/L BUN 7 L (9-20) mg/dL Creatinine 1.28 H (0.66-1.25) mg/dL Estimated GFR 64.1 ML/MIN Glucose 115 H (74-106) mg/dL Calcium 8.8 (8.4-10.2) mg/dL Magnesium (1.6-2.3) mg/dL Total Bilirubin 0.50 (0.2-1.3) mg/dL AST 40 (17-59) U/L ALT 20 (0-50) U/L Alkaline Phosphatase 299 H (38-126) U/L Troponin I 0.020 (0.000-0.033) ng/mL Serum Total Protein 7.2 (6.3-8.2) g/dL Albumin 3.7 (3.5-5.0) g/dL Lipase 95 (23-300) U/L Urine Color (Yellow) Urine Appearance (Clear) Urine pH (4.6-8.0) Ur Specific [place] (1.005-1.030) Urine Protein (Negative) Urine Glucose (UA) (Negative) mg/dL Urine Ketones (Negative) Urine Blood (Negative) Urine Nitrite (Negative) Urine Bilirubin (Negative) Urine Urobilinogen (0.2) mg/dL Ur Leukocyte Esterase (Negative) U Hyaline Cast (Auto) (0-2) /LPF Urine Microscopic RBC (0-5) /HPF Urine Microscopic WBC (0-5) /HPF Ur Epithelial Cells (None Seen) /HPF Urine Bacteria (None Seen) /HPF Urine Culture Reflexed (NO) Salicylates < 1.0 L (2-20) mg/dL Urine Opiates Level (NEGATIVE) Ur Methadone (NEGATIVE) Acetaminophen < 10 L (10-30) ug/ml Urine Barbiturates (NEGATIVE) Ur Phencyclidine (PCP) (NEGATIVE) Urine Amphetamine (NEGATIVE) U Benzodiazepine Level (NEGATIVE) Urine Cocaine (NEGATIVE) Urine Marijuana (THC) (NEGATIVE) Ethyl Alcohol 104 H (0-10) mg/dL - Progress Progress: improved Counseled pt/family regarding: drug and/or alcohol abuse, lab results, diagnosis, need for follow-up, rad results <JOSÉ MIGUEL MERRILL - Last Filed: 12/31/24 19:51> - Progress Progress Note: 12/31/24 17:14 Differential diagnosis includes head bleed, electrolyte abnormality, arrhythmia, alcohol intoxication, other drug intoxication, dehydration. Plan for basic labs, fluids, check electrolytes, head CT, chest x-ray. Reevaluation: Patient has expected low CO2, anion gap, low potassium. We will plan on replacing these. Head CT came out without head bleed, chest x-ray shows no trauma or other signs of infection. Continue close ER monitoring. 12/31/24 18:47 UA came back positive for UTI. Will treat with Rocephin 1 dose here. Antibiotics called into patient's pharmacy. Plan for repeat BMP after fluids and electrolyte replacement. 12/31/24 19:52 Transfer of care at [address] Kory Spears. He will follow-up on all repeat labs. Disposition per patient being clinically sober, reexam, electrolytes improving, response to treatment. (JOSÉ MIGUEL MERRILL) - Departure Critical Care Time: No <JOSÉ MIGUEL MERRILL - Last Filed: 12/31/24 19:51> - Departure Departure Disposition: Home <KORY SPEARS - Last Filed: 12/31/24 22:19> - Departure Clinical Impression: UTI (urinary tract infection), Alcohol intoxication, Electrolyte abnormality, Hypokalemia Condition: Stable Referrals: JENNIFER ALFONSO OF [Primary Care Provider, UNKNOWN] - Follow up/PCP as directed Instructions: Alcohol Use Disorder (DC) Prescriptions: Smz/Tmp Ds Tablet [Bactrim Ds Tablet] 1 udtab PO BID #14 tablet Cephalexin Mh 500 mg [Keflex 500 mg] 500 mg PO TID #21 cap
[2024-12-31] MEDS ORDERED: PROTONIX 40 MG IV IV ONE (17:56)
[2024-12-31] MEDS ORDERED: POTASSIUM CHLORIDE 20 mEq IN WATER 100ML 100 ML IV ONE (17:57)
[2024-12-31] MEDS: PROTONIX 40 MG IV IV ONE (17:58)
[2024-12-31] MEDS: POTASSIUM CHLORIDE 20 mEq IN WATER 100ML 20 MEQ/100 ML BAG IV ONE (18:01)
[2024-12-31 18:02] LABS: Appearance Cloudy (Clear); Bacteria Rare /HPF (None Seen); Bilirubin Negative (Negative); Blood Small (Negative); Epithelial Cells None Seen /HPF (None Seen); Glucose, Urine Negative (Negative); Ketones Negative (Negative); Leukocyte Esterase Large (Negative); Nitrite Negative (Negative); Ph 5.5 (4.6-8.0); Protein,Urine Dip 300 (Negative); Urobilinogen 0.2 mg/dL (0.2); WBC >100 /HPF (0-5)
[2024-12-31 18:14] LABS: Amphetamine,Urine NEGATIVE (NEGATIVE); Barbiturate,Urine NEGATIVE (NEGATIVE); Benzodiazepine,Urine POSITIVE (NEGATIVE); Cocaine,Urine NEGATIVE (NEGATIVE); Methadone,Urine NEGATIVE (NEGATIVE); Opiate,Urine POSITIVE (NEGATIVE); PCP,Urine NEGATIVE (NEGATIVE); THC,Urine NEGATIVE (NEGATIVE)
[2024-12-31] MEDS ORDERED: ROCEPHIN 2 GM/100 ML NACL 2 GM/100 ML IVPB IV ONE (19:36)
[2024-12-31] MEDS: ROCEPHIN 2 GM/100 ML NACL 2 GM/100 ML IVPB IV ONE (19:39)
[2024-12-31 21:19] VITALS: RESP 19; O2SAT 95
[2024-12-31 22:03] VITALS: BP 189/80; PULSE 87
== END 2024-12-31 22:39 | disposition home or self-care (01) ==
LOC: ED 14:01
DX: N39.0 Urinary tract infection, site not specified (principal); F10.129 Alcohol abuse with intoxication, unspecified; E87.8 Other disorders of electrolyte and fluid balance, not elsewhere classified; E87.6 Hypokalemia; Z79.899 Other long term (current) drug therapy; Z79.891 Long term (current) use of opiate analgesic; Z89.612 Acquired absence of left leg above knee; Z89.611 Acquired absence of right leg above knee; Z59.82 Transportation insecurity
CPT/HCPCS: 36415; 70450; 71045; 80053; 80143; 80179; 80307; 81001; 82077; 83690; 83735; 84484; 85025; 87077; 87086; 87186; 93005; 96361; 96365; 96366; 96368; 96374; 96375; 99285; J0696; J2405; J3480